=== PATIENT | male | born 1950 | race Caucasian/White ===

== ENCOUNTER 2020-03-06 06:33 | Day surgery (SDC) | payer MEDICARE ==
[~2020-03-06] VITALS: Ht 182.9 cm; Wt 101.0 kg
[~2020-03-06 06:33] MED LIST: ASPI81CH PO; ATOR10 PO; GLUCOSAMINE CH; IBUP200 PO; METO25ER PO; Multiple Vitam1 EAC1 PO; TEMOVATE15 G1; Viagra100 MG PO
--- NOTE | 2020-03-06 13:00 | NUR ---
10CC AIR REMOVED FROM R WRIST TR BAND. -BLEEDING OR SWELLING.
--- NOTE | 2020-03-06 13:44 | NUR ---
R WRIST TR BAND REMOVE AND CLEANED /C NS. -BLEEDING OR SWELLING. DOT CLOTH DRSG PLACED. R WRIST SPLINT REAPPLIED. IV REMOVED. PT VERBALIZED UNDERSTANDING OR WRITTEN AND VERBAL D/C INST. PT TAKEN OUT OF THE HRT CENTER VIA W/C.
== END 2020-03-06 13:00 | disposition home or self-care (01) ==
LOC: ECHO 06:33 → MHTC 06:33 → ECHO 07:00 → MHTC 08:00 → ECHO 13:00
DX: R07.9 Chest pain, unspecified (principal); R94.31 Abnormal electrocardiogram [ECG] [EKG]; I10 Essential (primary) hypertension; E78.5 Hyperlipidemia, unspecified; E66.9 Obesity, unspecified
CPT/HCPCS: 76937; 93306; 93458; 99152; C1769; C1894; J1644; J2250; J3010; J7030; J7050; Q9967

== ENCOUNTER → 2021-02-21 | Outpatient (CLI) | payer MEDICARE | END | disposition home or self-care (01) | LOC: LAB SHORT 11:06 | DX: K21.9 Gastro-esophageal reflux disease without esophagitis (principal); R19.7 Diarrhea, unspecified | CPT/HCPCS: 87338 ==

== ENCOUNTER 2025-03-15 12:40 | Day surgery (SDC) | payer OTHER ==
[~2025-03-15] VITALS: Ht 182.9 cm; Wt 97.2 kg
[2025-03-15] VITALS (14 sets, daily range): BP systolic 94–149; BP diastolic 56–88
[2025-03-15] MEDS ORDERED: ZOCOR20 MG PO (12:59)
[2025-03-15] MEDS ORDERED: EZET10 PO (13:00)
--- NOTE | 2025-03-15 15:28 | NUR ---
03/15/25 1528 Juli Estrada CONFIRMED AND REVIEWED H&P, MEDCICATIONS, ALLERGIES, MEDICAL HISTORY, RESPIRATORY HISTORY, VITAL SIGNS, 3-LEAD EKG, CONSENTS, AND PHYSICIAN ORDERS. PATIENT CONFIRMS NPO STATUS AND AGREES WITH SCHEDULED PROCEDURE. MONITOR INTACT WITH CONTINUOUS PULSE OXIMETRY, CAPNOGRAPHY, 3-LEAD EKG, INTERMITTENT BP. SUPPLEMENTAL O2 TO BE TITRATED THROUGHOUT PROCEDURE TO MAINTAIN O2 SATURATION ABOVE 90%. PATIENT DETERMINED TO BE ASA APPROPRIATE FOR PROPOFOL SEDATION PRIOR TO START OF PROCEDURE BY . MALLAMPATI CLASS 2 AIRWAY: COMPLETE VISUALIZATION OF THE UVULA.
--- NOTE | 2025-03-15 16:12 | NUR ---
Patient up to Ambulate independently. Gait steady. VSS and consistent with pt baseline. Pt has no complaints and verbalizes readiness to go home. Otoniel PO fluids. Discharge instructions reviewed with patient and his spouse. Patient verbalizes understanding. Copy given to patient to take home. Patient States Post-Procedure ride home has been arranged. Discharged via wheelchair to private car for ride home. Pt belongings returned to pt.
== END 2025-03-15 16:10 | disposition home or self-care (01) ==
LOC: ORSCMMR 12:40 → ORD 14:45 → ORSCMMR 16:10
PROVIDERS: Surgery
PROC: 0DBL8ZX Excision of Transverse Colon, Via Natural or Artificial Opening Endoscopic, Diagnostic (ICD-10-PCS; principal; 2025-03-15 14:45)
PROC: 0DBP8ZX Excision of Rectum, Via Natural or Artificial Opening Endoscopic, Diagnostic (ICD-10-PCS; principal; 2025-03-15 14:45)
DX: Z12.11 Encounter for screening for malignant neoplasm of colon (principal); D12.3 Benign neoplasm of transverse colon; D12.8 Benign neoplasm of rectum; K57.90 Diverticulosis of intestine, part unspecified, without perforation or abscess without bleeding; K64.1 Second degree hemorrhoids; Z86.0100 Personal history of colon polyps, unspecified; I10 Essential (primary) hypertension; I25.10 Atherosclerotic heart disease of native coronary artery without angina pectoris; E78.00 Pure hypercholesterolemia, unspecified; N40.0 Benign prostatic hyperplasia without lower urinary tract symptoms; Z79.899 Other long term (current) drug therapy
CPT/HCPCS: 88305; J2704; J7120